=== PATIENT | male | born 1955 | race Caucasian/White ===

== ENCOUNTER 2021-08-04 08:00 | Outpatient (CLI) | payer OTHER, SELFPAY ==
[2021-08-04 21:25] LABS: Hemoglobin A1C 10.6 % (<5.7)
[2021-08-05 13:23] LABS: Vitamin D 25 Hydroxy 15.4 ng/mL
[2021-08-09 14:48] LABS: Amphetamines NEGATIVE ng/mL (<500); Barbiturates NEGATIVE ng/mL (<300); Benzodiazepines NEGATIVE ng/mL (<100); Cocaine Metabolite NEGATIVE ng/mL (<100); Marijuana Metabolite POSITIVE ng/mL (<20); Methadone Metabolite NEGATIVE ng/mL (<100); Opiates NEGATIVE ng/mL (<100); Oxidant NEGATIVE mcg/mL (<200); pH 5.6 (4.5-9.0)
== END 2021-08-04 08:01 | disposition home or self-care (01) ==
PROVIDERS: PCP Family Medicine; Visit Provider Family Medicine
DX: R79.89 Other specified abnormal findings of blood chemistry (principal); E11.51 Type 2 diabetes mellitus with diabetic peripheral angiopathy without gangrene; I70.209 Unspecified atherosclerosis of native arteries of extremities, unspecified extremity; F41.9 Anxiety disorder, unspecified; E55.9 Vitamin D deficiency, unspecified
CPT/HCPCS: 36415; 80299; 82306; 83036

== ENCOUNTER 2021-11-04 07:11 | Outpatient (CLI) | payer OTHER, SELFPAY ==
[2021-11-04 20:24] LABS: Alanine Aminotransferase 20 U/L (4-50); Albumin Level 4.7 g/dL (3.5-5.1); Alkaline Phosphatase 82 U/L (38-126); Anion Gap 9 mmol/L (8-16); Aspartate Amino Transferase 23 U/L (17-59); Bilirubin,Total 0.4 mg/dL (0.2-1.3); Blood Urea Nitrogen 26 mg/dL (9-20); Calcium 9.8 mg/dL (8.4-10.2); Carbon Dioxide 26 mmol/L (22-30); Chloride 101 mmol/L (98-107); Estimated Glomerular Filt Rate > 60; Glucose 130 mg/dL (65-110); Sodium 136 mmol/L (137-145)
[2021-11-04 20:57] LABS: Creatinine Urine 166.8 mg/dL
[2021-11-04 21:01] LABS: MALB Creatinine Ratio 24.2 mg/g (0-30); Microalbumin Urine Random 40.3 mg/L (0-16.7)
[2021-11-04 21:12] LABS: Hemoglobin A1C 8.2 % (<5.7)
[2021-11-04 22:18] LABS: Vitamin D 25 Hydroxy 23.9 ng/mL
== END 2021-11-04 07:12 | disposition home or self-care (01) ==
PROVIDERS: PCP Family Medicine; Visit Provider Family Medicine
DX: E55.9 Vitamin D deficiency, unspecified (principal); E11.9 Type 2 diabetes mellitus without complications; R79.89 Other specified abnormal findings of blood chemistry
CPT/HCPCS: 36415; 80053; 82043; 82306; 83036

== ENCOUNTER 2021-11-10 09:39 | Outpatient (CLI) | payer OTHER, SELFPAY ==
--- NOTE | ~2021-11-10 | XR_ITS ---
EXAMINATION: XR scapula RT EXAM DATE: 11/10/2021 09:59 INDICATION: R07.81 - Pleurodynia TECHNIQUE: Frontal, Y projections of the right scapula. Correlation was made with right shoulder x-ra y from 08/24/2019. FINDINGS: There is mild glenohumeral joint, moderate acromioclavicular joint primary osteoarthritis. Imaged right upper ribs are unremarkable. There are no acute fractures or dislocations identified. T here is no subcutaneous gas. The soft tissue is unremarkable. There are no radiopaque foreign bodi es. IMPRESSION: Moderate right acromioclavicular osteoarthritis. Reviewed, dictated and finalized at location B. NG TESTER
--- NOTE | ~2021-11-10 | XR_ITS ---
EXAMINATION: XR_RIBSBI_CR EXAM DATE: 11/10/2021 09:59 INDICATION: No known recent injury provided at this time. Pain of the ribs. Pleurodynia. TECHNIQUE: Frontal projection of the upper left ribs, frontal projection of the lower left ribs, obli que projection of the left ribs. Frontal projection of the upper right ribs, frontal projection of t he lower right ribs, oblique projection of the right ribs, without chest x-ray(s) for interpretation. There is no prior study for comparison. FINDINGS: There are no displaced acute rib fractures identified. There are no osteoblastic or osteoly tic lesions identified. Sternotomy wires are present without findings to suggest sternal dehiscence. Mild to moderate left, moderate right acromioclavicular joint primary osteoarthritis.. No evidence o f airspace disease. IMPRESSION: Unremarkable ribs. Reviewed, dictated and finalized at location B. [facility] IMPRESSION: Unremarkable ribs.
== END 2021-11-10 09:40 | disposition home or self-care (01) ==
LOC: ANHBWCLAB 09:40
PROVIDERS: PCP Family Medicine; Visit Provider Family Medicine
DX: R07.81 Pleurodynia (principal); S40.011A Contusion of right shoulder, initial encounter; X58.XXXA Exposure to other specified factors, initial encounter; M19.011 Primary osteoarthritis, right shoulder
CPT/HCPCS: 71110; 73010

== ENCOUNTER 2022-02-10 07:07 | Outpatient (CLI) | payer OTHER, SELFPAY ==
[2022-02-10 20:44] LABS: Basophils Absolute Auto 0.1 K/mm3 (0.0-0.1); Basophils Percent Auto 0.9 % (0.2-1.2); Eosinophils Absolute Auto 0.4 K/mm3 (0-0.3); Eosinophils Percent Auto 3.2 % (0-4.4); Hematocrit 47.4 % (42.0-52.0); Hemoglobin 14.7 g/dL (14.0-18.0); Immature Granulocyte Absolute 0.03 K/mm3 (0.00-0.031); Immature Granulocyte Percent A 0.2 % (0-0.5); Lymphocytes Absolute Auto 3.99 K/mm3 (0.9-3.2); Lymphocytes Percent Auto 32.4 % (18.3-44.2); Mean Corpuscular Hemoglobin 28.8 pg (26-34); Mean Corpuscular Volume 92.9 fl (80-100); Mean Platelet Volume 9.5 fl (7.4-10.4); Monocytes Absolute Auto 0.9 K/mm3 (0.1-0.6); Monocytes Percent Auto 7.3 % (2.6-8.5); Neutrophils Absolute Auto 6.9 K/mm3 (1.3-6.7); Platelet Count Result 314 k/mm3 (150-375); Red Cell Distribution Width 14.1 % (11.5-14.5); White Blood Count 12.3 K/mm3 (4.5-10.0)
[2022-02-10 20:56] LABS: Cholesterol 148 mg/dL (0-200); HDL Direct 32 mg/dL; Triglycerides 132 mg/dL (<150)
[2022-02-10 21:04] LABS: Hemoglobin A1C 7.3 % (<5.7)
[2022-02-10 21:06] LABS: LDL Cholesterol Direct 85 mg/dL
[2022-02-10 21:12] LABS: Vitamin D 25 Hydroxy 77.5 ng/mL
[2022-02-10 21:14] LABS: Creatinine Urine 70.7 mg/dL
[2022-02-10 21:57] LABS: Microalbumin Urine Random 7.1 mg/L (0-16.7)
== END 2022-02-10 07:08 | disposition home or self-care (01) ==
PROVIDERS: PCP Family Medicine; Visit Provider Family Medicine
DX: R79.89 Other specified abnormal findings of blood chemistry (principal); F17.200 Nicotine dependence, unspecified, uncomplicated; E11.51 Type 2 diabetes mellitus with diabetic peripheral angiopathy without gangrene; I70.209 Unspecified atherosclerosis of native arteries of extremities, unspecified extremity; E55.9 Vitamin D deficiency, unspecified
CPT/HCPCS: 36415; 80061; 82043; 82306; 83036; 85025

== ENCOUNTER 2022-05-15 08:54 | Outpatient (CLI) | payer OTHER, SELFPAY ==
[2022-05-15 18:52] LABS: Basophils Absolute Auto 0.1 K/mm3 (0.0-0.1); Basophils Percent Auto 0.9 % (0.2-1.2); Eosinophils Absolute Auto 0.5 K/mm3 (0-0.3); Hematocrit 44.8 % (42.0-52.0); Hemoglobin 14.4 g/dL (14.0-18.0); Immature Granulocyte Absolute 0.04 K/mm3 (0.00-0.031); Immature Granulocyte Percent A 0.3 % (0-0.5); Lymphocytes Absolute Auto 4.82 K/mm3 (0.9-3.2); Lymphocytes Percent Auto 39.3 % (18.3-44.2); Mean Corpuscular HGB Conc 32.1 g/dl (32-36); Mean Corpuscular Hemoglobin 28.6 pg (26-34); Mean Corpuscular Volume 88.9 fl (80-100); Mean Platelet Volume 9.7 fl (7.4-10.4); Monocytes Percent Auto 7.9 % (2.6-8.5); Neutrophils Absolute Auto 5.8 K/mm3 (1.3-6.7); Neutrophils Percent Auto 47.6 % (45.5-73.1); Platelet Count Result 304 k/mm3 (150-375); Red Blood Count 5.04 M/mm3 (4.6-6.20); Red Cell Distribution Width 14.8 % (11.5-14.5); White Blood Count 12.3 K/mm3 (4.5-10.0)
[2022-05-15 19:01] LABS: Alanine Aminotransferase 26 U/L (6-50); Albumin Level 4.9 g/dL (3.5-5.1); Alkaline Phosphatase 88 U/L (38-126); Anion Gap 8 mmol/L (8-16); Aspartate Amino Transferase 76 U/L (17-59); Bilirubin,Total 0.7 mg/dL (0.2-1.3); Blood Urea Nitrogen 23 mg/dL (9-20); Calcium 9.9 mg/dL (8.4-10.2); Carbon Dioxide 30 mmol/L (22-30); Chloride 99 mmol/L (98-107); Estimated Glomerular Filt Rate > 60; Glucose 128 mg/dL (65-110); Potassium 5.2 mmol/L (3.4-5.0); Sodium 137 mmol/L (137-145)
[2022-05-15 19:37] LABS: Hemoglobin A1C 7.4 % (<5.7)
== END 2022-05-15 08:55 | disposition home or self-care (01) ==
PROVIDERS: PCP Family Medicine; Visit Provider Family Medicine
DX: D72.829 Elevated white blood cell count, unspecified (principal); E11.9 Type 2 diabetes mellitus without complications
CPT/HCPCS: 36415; 80053; 83036; 85025

== ENCOUNTER 2022-08-12 07:14 | Outpatient (CLI) | payer OTHER, SELFPAY ==
[2022-08-12 18:54] LABS: Hemoglobin A1C 8.2 % (<5.7)
[2022-08-12 19:07] LABS: Alanine Aminotransferase 32 U/L (6-50); Albumin Level 5.1 g/dL (3.5-5.1); Alkaline Phosphatase 83 U/L (38-126); Anion Gap 10 mmol/L (8-16); Aspartate Amino Transferase 46 U/L (17-59); Bilirubin,Total 0.5 mg/dL (0.2-1.3); Blood Urea Nitrogen 23 mg/dL (9-20); Calcium 9.1 mg/dL (8.4-10.2); Carbon Dioxide 27 mmol/L (22-30); Chloride 100 mmol/L (98-107); Estimated Glomerular Filt Rate > 60; Glucose 82 mg/dL (65-110); Potassium 3.9 mmol/L (3.4-5.0); Sodium 137 mmol/L (137-145)
[2022-08-12 19:21] LABS: Hepatitis B Surface Antigen Negative (Negative)
[2022-08-12 19:26] LABS: HAV RESULT Negative (Negative); Hepatitis B Core IgM Result Negative (Negative)
[2022-08-12 19:30] LABS: Prostate Specific Antigen 0.6 ng/mL (< OR = 4.0)
[2022-08-12 19:38] LABS: Hepatitis C Virus Antibody Negative (Negative)
[2022-08-12 19:50] LABS: Creatinine Urine 49.5 mg/dL
[2022-08-12 19:54] LABS: MALB Creatinine Ratio 14.1 mg/g (0-30)
== END 2022-08-12 07:15 | disposition home or self-care (01) ==
PROVIDERS: PCP Family Medicine; Visit Provider Family Medicine
DX: R94.5 Abnormal results of liver function studies (principal); E11.9 Type 2 diabetes mellitus without complications; Z12.5 Encounter for screening for malignant neoplasm of prostate
CPT/HCPCS: 36415; 80053; 80074; 82043; 82248; 83036; 84153; G0103

== ENCOUNTER 2022-10-16 08:45 | Outpatient (CLI) | payer OTHER, SELFPAY ==
[2022-10-16 18:39] LABS: Appearance Urine Clear (Clear); Bilirubin Urine Negative (Negative); Blood Urine Negative (Negative); Color Urine Yellow (Yellow); Glucose Urine UA Negative (Negative); Ketones Urine Negative (Negative); Leukocyte Esterase Ur Negative LEU/UL (NEGATIVE); Nitrate Urine Negative (Negative); Protein Urine Negative (Negative); Urobilinogen Urine 0.2 mg/dL (<2.0)
[2022-10-16 18:44] LABS: Add Urine Microscopic? NO
== END 2022-10-16 08:46 | disposition home or self-care (01) ==
PROVIDERS: PCP Family Medicine; Visit Provider Family Medicine
DX: R06.00 Dyspnea, unspecified (principal); I25.10 Atherosclerotic heart disease of native coronary artery without angina pectoris
CPT/HCPCS: 81003

== ENCOUNTER 2024-05-02 07:13 | Outpatient (CLI) | payer OTHER, SELFPAY ==
[2024-05-02 18:41] LABS: Hematocrit 39.2 % (42.0-52.0); Hemoglobin 11.7 g/dL (14.0-18.0); Mean Corpuscular HGB Conc 29.8 g/dl (32-36); Mean Corpuscular Volume 87.1 fl (80-100); Mean Platelet Volume 9.9 fl (7.4-10.4); Platelet Count Result 339 k/mm3 (150-375); Red Cell Distribution Width 16.9 % (11.5-14.5); White Blood Count 12.3 K/mm3 (4.5-10.0)
[2024-05-02 18:46] LABS: Alanine Aminotransferase 18 U/L (6-50); Albumin Level 4.7 g/dL (3.5-5.1); Alkaline Phosphatase 78 U/L (38-126); Anion Gap 14 mmol/L (4-12); Aspartate Amino Transferase 44 U/L (17-59); Bilirubin,Total 0.4 mg/dL (0.2-1.3); Blood Urea Nitrogen 18 mg/dL (9-20); Calcium 9.5 mg/dL (8.4-10.2); Carbon Dioxide 27 mmol/L (22-30); Chloride 96 mmol/L (98-107); Cholesterol 153 mg/dL (0-200); Estimated Glomerular Filt Rate > 60; Glucose 96 mg/dL (65-110); HDL Direct 43 mg/dL; Potassium 4.3 mmol/L (3.4-5.0); Sodium 137 mmol/L (137-145); Triglycerides 111 mg/dL (<150)
[2024-05-02 18:57] LABS: LDL Cholesterol Direct 77 mg/dL
[2024-05-02 19:05] LABS: Iron 42 ug/dL (49-181)
[2024-05-02 19:13] LABS: Prostate Specific Antigen 0.7 ng/mL (< OR = 4.0)
[2024-05-02 19:18] LABS: Percent Iron Saturation 9 % (20-50)
[2024-05-02 19:20] LABS: Vitamin D 25 Hydroxy 42.6 ng/mL
[2024-05-02 19:28] LABS: Creatinine Urine 70.1 mg/dL
[2024-05-02 19:36] LABS: MALB Creatinine Ratio < 8.6 mg/g (0-30); Microalbumin Urine Random < 6.0 mg/L (0-16.7)
[2024-05-02 19:53] LABS: Ferritin 7.26 ng/mL (11.1-264)
== END 2024-05-02 07:14 | disposition home or self-care (01) ==
PROVIDERS: PCP Family Medicine; Visit Provider Family Medicine
DX: D64.9 Anemia, unspecified (principal); E11.51 Type 2 diabetes mellitus with diabetic peripheral angiopathy without gangrene; I25.10 Atherosclerotic heart disease of native coronary artery without angina pectoris; I70.209 Unspecified atherosclerosis of native arteries of extremities, unspecified extremity; R79.89 Other specified abnormal findings of blood chemistry; Z95.1 Presence of aortocoronary bypass graft; Z79.899 Other long term (current) drug therapy; M89.8X9 Other specified disorders of bone, unspecified site; E11.9 Type 2 diabetes mellitus without complications; Z12.5 Encounter for screening for malignant neoplasm of prostate
CPT/HCPCS: 36415; 80053; 80061; 82043; 82306; 82607; 82728; 83036; 83540; 83550; 84153; 84443; 85027; G0103